=== PATIENT | female | born 1995 | race African-American/Black ===

== ENCOUNTER 2017-11-27 10:19 | Emergency (ER) | payer OTHER ==
[~2017-11-27] VITALS: Ht 157.5 cm; Wt 60.5 kg
[2017-11-27 10:31] VITALS: BP 118/55; PULSE 20; PULSE 70; RESP 16; TEMP 98.1; O2SAT 99
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
[2017-11-27] MEDS ORDERED: METOCLOPRAMIDE HCL 10 MG TAB PO ONE (11:45)
[2017-11-27] MEDS ORDERED: diphenhydrAMINE HCL 50 MG CAP PO ONE (11:45)
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
== END 2017-11-27 13:01 | disposition home or self-care (01) ==
LOC: PHED 10:19 → PHEFT 13:01
DX: S09.90XA Unspecified injury of head, initial encounter (principal); G44.319 Acute post-traumatic headache, not intractable; V44.9XXA Unspecified car occupant injured in collision with heavy transport vehicle or bus in traffic accident, initial encounter
CPT/HCPCS: 70450; 99283; Q0163